=== PATIENT | female | born 1975 | race Caucasian/White ===

== ENCOUNTER 2021-06-05 16:02 | Emergency (ER) | payer SELFPAY ==
[~2021-06-05] VITALS: Ht 165.1 cm; Wt 59.0 kg
[2021-06-05] MEDS ORDERED: IBUPROFEN 600 MG TAB PO STA (17:22)
[2021-06-05] MEDS ORDERED: FOSPHENYTOIN 1,000 MG in SODIUM CHLORIDE 0.9% 50ML 50 ML IV ONE (17:30)
== END 2021-06-05 18:00 | disposition home or self-care (01) ==
LOC: ER 16:47
DX: G40.909 Epilepsy, unspecified, not intractable, without status epilepticus (principal); I10 Essential (primary) hypertension; E78.5 Hyperlipidemia, unspecified
CPT/HCPCS: 99284; Q2009